=== PATIENT | female | born 1960 | race Hispanic/Latino ===

== ENCOUNTER 2018-02-28 15:08 | Outpatient (CLI) | payer OTHER | END 2018-02-28 15:09 | disposition home or self-care (01) | LOC: BICMAMMO 15:08 | PROVIDERS: ATTEND Obstetrics & Gynecology | DX: Z12.31 Encounter for screening mammogram for malignant neoplasm of breast (principal) | CPT/HCPCS: 77063; 77067 ==

== ENCOUNTER 2019-09-25 07:34 | Outpatient (CLI) | payer OTHER ==
--- NOTE | 2019-09-25 09:29 | MRI ---
MRI LUMBAR SPINE WITHOUT CONTRAST: INDICATIONS: Radiculitis. FINDINGS: Generalized marrow heterogeneity is nonspecific. No acute marrow edema or compression deformity. Ther e is disk space narrowing of the L5-S1 level. There is multilevel mild to moderate degenerative facet hypertrophy bilaterally. L5-S1: Disk bulge is present with mild effacement of the ventral thecal sac. No significant neural fo raminal stenosis. L4-L5: Broad-based disk bulge with moderate central canal stenosis and crowding of the bilateral dilma ersing L5 nerve roots. No high grade foraminal stenosis. Disk bulge with superimposed central disk pr otrusion. L3-L4: Mild disk bulge with mild effacement of the ventral thecal sac. No significant foraminal steno sis. L2-L3: No significant central canal or neural foraminal stenosis. L1-L2: No significant central canal or neural foraminal stenosis. There is mild congenital AP diameter narrowing of the vertebral canal on the basis of congenitally sh ortened pedicles. IMPRESSION: Mild degenerative changes of the lumbar spine, superimposed upon a congenitally narrowed vertebral ca nal, most pronounced at L4-L5. POS: [facility]
== END 2019-09-25 07:35 | disposition home or self-care (01) ==
LOC: BICMRI 07:34
PROVIDERS: ATTEND Family Medicine
DX: S39.012A Strain of muscle, fascia and tendon of lower back, initial encounter (principal); M47.26 Other spondylosis with radiculopathy, lumbar region; M48.061 Spinal stenosis, lumbar region without neurogenic claudication
CPT/HCPCS: 72148

== ENCOUNTER 2019-11-28 15:09 | Outpatient (CLI) | payer BC ==
--- NOTE | 2019-11-28 15:29 | RAD ---
Exam: XR Hip Rt 2-3 View HISTORY: Arthralgia right hip. No known injury. Pain for months. COMPARISON: None FINDINGS: Phleboliths overlie the pelvis. No acute fracture, dislocation, or other acute osseous abnormality is identified. IMPRESSION: No acute osseous abnormality is identified.
== END 2019-11-28 15:10 | disposition home or self-care (01) ==
LOC: BICRAD 15:09
PROVIDERS: ATTEND Family Medicine
DX: M25.551 Pain in right hip (principal)